=== PATIENT | female | born 1970 | race Caucasian/White ===

== ENCOUNTER → 2022-02-25 10:15 | Outpatient (CLI) | payer OTHER, SELFPAY ==
--- NOTE | ~2022-02-25 | XR_ITS ---
EXAM: XR lumbar spine 2-3V HISTORY: Low back pain COMPARISON: None available FINDINGS: 5 nonrib-bearing lumbar-type vertebral bodies. Pedicles intact. Normal vertebral body alig nment. Vertebral body heights preserved. Disc spaces maintained. L4-5 and L5-S1 facet arthropathy, ot herwise normal facets and posterior elements. IMPRESSION: No acute fracture or traumatic malalignment in the lumbar spine. Chronic findings detailed above. Reviewed, dictated and finalized at location K. IMPRESSION: No acute fracture or traumatic malalignment in the lumbar spine. Chronic findin gs detailed above.
== END ==
PROVIDERS: PCP Physician Assistant; Visit Provider Physician Assistant
DX: M54.50 Low back pain, unspecified (principal)
CPT/HCPCS: 72100

== ENCOUNTER 2022-04-07 04:37 | Day surgery (SDC) | payer OTHER, SELFPAY ==
[2022-03-21 14:07] VITALS: BMI 32.0
--- NOTE | 2022-04-07 08:43 | P.PNAN_ITS ---
Anes - Initial Pre Proc Eval Procedure: Operation Date: 04/07/22 10:00 Proposed Procedures p Colonoscopy - Michi Waters MD Date/Time: 04/07/22 08:43 Surgeon: Michi Waters MD Pre Op Diagnosis: change in bowel habits Patient Data Age: 52 Gender: F Height: 1.73 m Weight: 95.5 kg Allergies Allergy/AdvReac Type Severity Reaction Status Date / Time No Known Allergies Allergy Verified 04/07/22 08:55 Home Medications Medication Instructions Recorded Confirmed Type sodium sul 1.479 gram-potas ch See Rx Instructions PO PER PKG DIR 03/03/22 03/21/22 Rx 0.188 gram-magnes sul 0.225 gram #24 tabs tablet (Sutab) losartan 50 mg tablet (Cozaar) 50 tablet PO DAILY 03/21/22 03/21/22 History Patient hx anesthesia problems: none Family hx anesthesia problems: none Results Review: All pre-operative results and documents have been reviewed as part of the pre- operative evaluation. [facility] Past Medical History Medical History (Updated 04/07/22 @ 08:44 by Nakul Kothari MD) Arthritis Back pain Chronic GERD HTN (hypertension) Social History Social History Smoking status: Never smoker Alcohol intake: current Alcohol use details: 3/MO Substance use: never Substance use type: does not use Living arrangements: with family Spiritual care concerns: No Anes - Eval Final PreProcedure Day of Procedure 04/07/22 08:43 Patient weight: obese Heart: regular rate and rhythm Lungs: clear to auscultation and normal air movement Airway: Mallampati scale class II Neurological: alert and oriented Last oral intake: >/= 8 hours ASA classification: II Emergent: no Anesthetic plan: proceed Anesthesia type and monitoring: general GIVS Results Review: All pre-operative results and documents have been reviewed as part of the pre- operative evaluation. Informed Consent: The patient's anesthetic plan and its attendant risks and benefits were discussed with the patient/family/POA. Questions were solicited and answers provided to the satisfaction of the patient/family/POA.
[2022-04-07 08:56] VITALS: BP 124/106; PULSE 84; RESP 20; TEMP 36.4; O2SAT 99; BMI 32.1
[2022-04-07] MEDS: LACTATED RINGERS 1,000 ML 150 ML IV CONT (09:09)
--- NOTE | 2022-04-07 09:42 | WPDGICN ---
Assessment and Plan Assessment and plan (1) Encounter for screening colonoscopy: Code(s): Z12.11 - Encounter for screening for malignant neoplasm of colon Status: Acute Assessment and Plan: Patient presents for screening colonoscopy because of her age. High-fiber diet is advised because of occasional constipation. Further recommendations will be given after endoscopy. She appears to be at average risk for colon polyps. GI Consult Note Consult date/time: 04/07/22 09:42 Reason for consult: neoplasia screening. HPI: Lida Kumar is a 52 year old female Presents for screening colonoscopy. Patient reports since October is had 2 bouts of constipation. These improved with stool softeners and laxatives. She no longer has difficulties. Her current weight appetite bowel movements are normal. She denies abdominal pain. She has had no bleeding. Family history is noncontributory. Patient presents today for screening colonoscopy. Review of Systems Review of Systems: Review of systems noncontributory. [facility] Past Medical History Medical History (Updated 04/07/22 @ 09:44 by Michi Waters MD) Arthritis Back pain Chronic GERD HTN (hypertension) Social History Social History Smoking status: Never smoker Alcohol intake: current Alcohol use details: 3/MO Substance use: never Substance use type: does not use Living arrangements: with family Spiritual care concerns: No Meds Home Medications and Allergies Home Medications Medication Instructions Recorded Confirmed Type sodium sul 1.479 gram-potas ch See Rx Instructions PO PER PKG DIR 03/03/22 03/21/22 Rx 0.188 gram-magnes sul 0.225 gram #24 tabs tablet (Sutab) losartan 50 mg tablet (Cozaar) 50 tablet PO DAILY 03/21/22 03/21/22 History Allergies Allergy/AdvReac Type Severity Reaction Status Date / Time No Known Allergies Allergy Verified 04/07/22 08:55 Vital Signs Vital Signs - 24 hr 04/07/22 08:56 Temperature 97.6 F Pulse Rate 84 Respiratory Rate 20 Blood Pressure 124/106 H Pulse Oximetry 99 Oxygen Delivery Room Air Exam Narrative: physical exam reveals patient to be alert. Vital signs stable. HEENT exam is unremarkable. Lungs are clear to auscultation and percussion. Heart is without murmur or extra sounds. Abdominal exam bowel sounds are present soft nontender with no hepatosplenomegaly. Digital external rectal exam is normal.
[2022-04-07] MEDS: SIMETHICONE ORAL SUSPENSION 20 MG/0.3 ML 30 ML BOTTLE 0.6 ML IRRIGATION (10:00)
[2022-04-07 10:11] VITALS: BP 158/85; PULSE 92; RESP 25; O2SAT 98
[2022-04-07 10:21] VITALS: BP 148/97; PULSE 83; RESP 26; O2SAT 83
[2022-04-07 10:31] VITALS: BP 144/89; PULSE 72; RESP 18; O2SAT 100
== END 2022-04-07 10:36 | disposition home or self-care (01) ==
PROVIDERS: PCP Physician Assistant; Visit Provider Internal Medicine Gastroenterology
PROC: 0DJD8ZZ Inspection of Lower Intestinal Tract, Via Natural or Artificial Opening Endoscopic (ICD-10-PCS; CPT 45378; principal; 2022-04-07 10:00)
DX: Z12.11 Encounter for screening for malignant neoplasm of colon (principal); D12.5 Benign neoplasm of sigmoid colon; K59.00 Constipation, unspecified; K64.8 Other hemorrhoids; K21.9 Gastro-esophageal reflux disease without esophagitis; I10 Essential (primary) hypertension; E66.9 Obesity, unspecified; Z68.32 Body mass index [BMI] 32.0-32.9, adult
CPT/HCPCS: 45380; 88305; J2704; J7120

== ENCOUNTER → 2023-05-04 08:42 | Outpatient (CLI) | payer OTHER, SELFPAY ==
--- NOTE | ~2023-05-04 | US_ITS ---
Renal-Bladder ultrasound Clinical History: Hypertension Technique: Real-time sonographic imaging of the kidneys and urinary bladder was performed. Findings: The right kidney measures 14.3 cm in length and the left kidney measures 11.8 cm. Left kidn ey is morphologically unremarkable. No left renal mass identified. There are multiple anechoic region s, essentially completely replacing the right kidney. There is apparent marked cortical thinning in t he right kidney. The urinary bladder is moderately distended at the time of this exam. No intraluminal echoes are iden tified. No abnormal wall thickening is seen. Impression: Severe right hydronephrosis with marked, diffuse cortical thinning versus multiple right renal cysts. Differentiation of these etiologies is suboptimal on this exam, though the latter is somewhat favore d given apparent lack of communication of some of the cystic appearing areas. Left kidney unremarkable. Reviewed, dictated and finalized at location . Impression: Severe right hydronephrosis with marked, diffuse cortical thinning versus multi ple right renal cysts. Differentiation of these etiologies is suboptimal on thi s exam, though the latter is somewhat favored given apparent lack of communicat ion of some of the cystic appearing areas. Left kidney unremarkable.
--- NOTE | ~2023-05-04 | US_ITS ---
EXAMINATION: US retroperitoneal duplex ltd DATE: 05/04/2023 09:39 INDICATION: Essential (primary) hypertension TECHNIQUE: Multiple grayscale, color Doppler, and pulsed Doppler images of the kidneys and renal hilda osiel were obtained. COMPARISON: None. FINDINGS: The aorta peak systolic velocity is 100 cm/s. The right renal artery peak systolic velocity is 81 cm/ s in the proximal segment, the mid segment was unable to be visualized, and 34 cm/s in the distal seg ment. The left renal artery peak systolic velocity is 84 cm/s in the proximal segment and 69 cm/s in the distal segment. The mid segment of the left renal artery was also unable to be visualized. There appears to be a borderline delayed systolic upstroke at the distal left renal artery and could not ex clude a more proximal nonvisualized hemodynamically significant stenosis IMPRESSION: 1. No no elevated peak systolic velocities in the visualized portion of the bilateral renal arteries to suggest a hemodynamically significant stenosis. The mid portions of both renal arteries are howev er unable to be visualized. Borderline delayed systolic upstroke at the distal left renal artery sugg ests possibility of the intervening nonvisualized hemodialysis significant stenosis. Could consider a bdominal CT angiogram for further evaluation. Reviewed, dictated and finalized at location A. IMPRESSION: 1. No no elevated peak systolic velocities in the visualized portion of the bi lateral renal arteries to suggest a hemodynamically significant stenosis. The m id portions of both renal arteries are however unable to be visualized. Borderl ine delayed systolic upstroke at the distal left renal artery suggests possibil ity of the intervening nonvisualized hemodialysis significant stenosis. Could c onsider abdominal CT angiogram for further evaluation.
== END ==
PROVIDERS: PCP Physician Assistant; Visit Provider Physician Assistant
DX: I10 Essential (primary) hypertension (principal)
CPT/HCPCS: 76775; 93976

== ENCOUNTER → 2023-05-30 09:15 | Outpatient (CLI) | payer OTHER, SELFPAY ==
--- NOTE | ~2023-05-30 | CT_ITS ---
EXAMINATION: CTA abdomen DATE: 05/30/2023 10:00 INDICATION: Renal artery atherosclerosis and stenosis TECHNIQUE: Computed tomographic angiography (CTA) of the abdomen including the upper pelvis was perfo rmed with 100 mL Omnipaque-350 intravenous contrast. Additional 3D reconstructions utilizing rotating maximum intensity projection (MIP) were performed. Automated exposure control and iterative reconstr uction technique were employed. The dose-length product was 670.91 mGy-cm. COMPARISON: CT abdomen and pelvis dated 08/22/2012 and renal and renal artery ultrasound dated 05/04/20. FINDINGS: Mild discoid atelectasis at the lingula. Heart size is normal. No pericardial or pleural effusion. Li wero, gallbladder, spleen, pancreas and bilateral adrenal glands are normal. Severe right renal atroph y with severe right hydroureteronephrosis. On the caudal-most images the right ureter appears be begi nning to decrease in caliber with suggestion of some peripheral urothelial thickening which raises co ncern for ureteral stricture of indeterminate etiology, potentially malignant. No interval change in a couple small regions of cortical scarring at the lower pole of the left kidney. A couple stones at the lower pole of the left kidney the larger measuring up to 3 to 4 mm in maximal diameter. Visualize d portion of the bowels including the appendix are normal. 2.0 cm left adnexal cyst. The right adnexa appears enlarged for age measuring 3.8 x 3.3 cm without definitive cyst. The right renal artery appe ars diffusely small likely secondary to the severe right renal atrophy. The aorta and at remaining ma mauricio branch vessels all appear normal in caliber with no hemodynamically significant stenosis. No evid ent hemodynamically significant stenosis in the main left renal artery. There appears to be stenosis in the distal most aspect of a physically smaller caliber accessory left renal artery which supplies the lower pole of the region of the cortical scarring which suggests atrophy is due to prior infarct. No pathologically enlarged abdominal or upper pelvic lymphadenopathy. Bones are unremarkable. IMPRESSION: 1. Severe right renal atrophy with severe right hydroureteronephrosis which extends to the caudal-mos t images whether suggestion of a possible stricture with urothelial thickening raising concern for ma lignancy. This is however incompletely visualized and would recommend further evaluation with either CT urogram to include the pelvis or cystoscopy with retrograde pyelogram. Consider urologic consultat ion. 2. No evident stenosis in the dominant left vertebral artery. There does however appear to be a steno sis in the very small caliber accessory left renal artery which supplies the lower pole of the left k idney there are couple small regions of chronic cortical atrophy suggestive of prior infarct. This ma y represent the vessel with delayed systolic upstrokes identified at the left renal hilum on prior ul trasound study. 3. Nonobstructing left nephrolithiasis. 4. Incompletely visualized right ovary appears both significantly larger than the 2 cm cyst containin g contralateral left ovary also a relatively large for age but without an evident ovarian cyst to acc ount for the enlargement. Consider pelvic ultrasound for further evaluation. This could also be reass essed with CT imaging at the same time as evaluation of the distal right ureter. Reviewed, dictated and finalized at location B. IMPRESSION: 1. Severe right renal atrophy with severe right hydroureteronephrosis which ext ends to the caudal-most images whether suggestion of a possible stricture with urothelial thickening raising concern for malignancy. This is however incomplet dany visualized and would recommend further evaluation with either CT urogram to include the
[2023-05-30 09:43] LABS: Estimated Glomerular Filt Rate 52
== END ==
PROVIDERS: PCP Physician Assistant; Visit Provider Physician Assistant
DX: I70.1 Atherosclerosis of renal artery (principal)
CPT/HCPCS: 74175; Q9967

== ENCOUNTER → 2023-06-06 15:24 | Outpatient (CLI) | payer OTHER, SELFPAY ==
--- NOTE | ~2023-06-06 | US_ITS ---
EXAMINATION: US transvaginal DATE: 06/06/2023 15:57 INDICATION: Ovarian enlargement on CT TECHNIQUE: Multiple endovaginal sonographic images of the pelvis were obtained. COMPARISON: CT, 05/30/2023 FINDINGS: The uterus is surgically absent. The ovaries are not visualized however no adnexal abnormal ity is seen. There is no free fluid in the pelvis. IMPRESSION: 1. No adnexal abnormality identified. Reviewed, dictated and finalized at location B.
== END ==
PROVIDERS: PCP Physician Assistant; Visit Provider Physician Assistant
DX: R19.09 Other intra-abdominal and pelvic swelling, mass and lump (principal)
CPT/HCPCS: 76830

== ENCOUNTER 2023-08-16 13:33 | Outpatient (CLI) | payer OTHER, SELFPAY ==
--- NOTE | ~2023-08-16 | NM_ITS ---
EXAMINATION: MURRAY stuart renal scan DATE: 08/16/2023 14:48 INDICATION: Hydronephrosis TECHNIQUE: 8.0 mCi Tc-99m MAG3 was administered IV. 40 mg furosemide was administered IV immediately afterward. A posterior abdominal radionuclide angiogram was obtained. A subsequent time course of st atic images of the kidneys, ureters, and bladder was obtained. COMPARISON: None FINDINGS: The posterior abdominal radionuclide angiogram and sequential static images show normal size, positio n, and morphology of the left kidney. Subtle thin line of activity in the region of the right kidney likely representing minimal amount of activity at the markedly atrophic and thinned cortex at the per iphery of the right kidney which is enlarged due to marked dilation of the collecting system on prior CT. Peak renal parenchymal uptake was 2.4 min in left kidney and indeterminate due to the negligible activity in the right kidney (normal peak 3-5 minutes). The relative early renal uptake was 98% on the left and 2% on the right (<40% is abnormal). No abnormalities of the ureters or bladder are seen . T1/2 for clearance of activity from the left kidney and proximal collecting system was 6 minutes. T1/2 for clearance of activity from the right kidney and proximal collecting system was indeterminate due to negligible activity. Notes on interpretation: T1/2 <10 minutes is normal, 10-15 minutes is low grade obstruction of questi onable clinical significance, 15-20 minutes is partial obstruction that is likely clinically signific ant, >20 minutes is high grade obstruction. Note that false positives may be seen with supine positio terence, dehydration, severely dilated nonobstructed kidney, atonic collecting system, poor renal functi on, and chronic furosemide use. IMPRESSION: 1. Marked atrophy of the right kidney on prior CT with nearly indiscernible activity contributing on ly 2% of total renal function and precluding assessment for persistent obstruction 2. No delay in contrast clearance from the left kidney to suggest fixed obstruction. Reviewed, dictated and finalized at location A. IMPRESSION: 1. Marked atrophy of the right kidney on prior CT with nearly indiscernible ac tivity contributing only 2% of total renal function and precluding assessment f or persistent obstruction 2. No delay in contrast clearance from the left kidney to suggest fixed obstru ction.
== END 2023-08-16 13:34 | disposition home or self-care (01) ==
PROVIDERS: PCP Physician Assistant; Visit Provider Urology
DX: N26.1 Atrophy of kidney (terminal) (principal)
CPT/HCPCS: 78708; A9562; J1940